=== PATIENT | female | born 1980 | race Two or more races ===

== ENCOUNTER 2024-11-17 10:09 | Outpatient (AMB) | payer MEDICAID, SELFPAY ==
--- OUTSIDE RECORDS SUMMARY | 2024-11-17 10:18 | XMS_ITS | Clinical Summary ---
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 Name Role Phone Unavailable Primary Care Provider Unavailabl e Encounters Date Type Department Care Team Description 11/07/2024 Population Health Risk Score [facility] ([facility]) Department [address] [place] [address] Provider, Population Health Generic from Last 3 Months Social History Tobacco Use Types Packs/Day Years Used Date Smoking Tobacco: Never Assessed Comments Unknown Sex and Gender Information Value Date Recorded Sex Assigned at Not on file Legal Sex Female 9:21 PM EDT Gender Identity Not on file Sexual Orientation Not on file Plan of Treatment Health Maintenance Due Date Last Done Comments CT Colonography 1979 Colonoscopy 1979 Colorectal Cancer Screening 1979 Depression Screening 1979 FIT DNA/Cologuard 1979 FIT 1979 FOBT 1979 HIV Screening 1979 SDOH Screening 1979 Sigmoidoscopy 1979 Disability Screening 1979 Alcohol/Substance Use Screening 1991 Tobacco Screening 1991 Family Planning (PISQ) 1994 HPV Vaccines (1 - 3-dose series) 1994 Hepatitis C Screening 1997 DTaP/Tdap/Td Vaccines (1 - Tdap) 1998 Hepatitis B Vaccines (1 of 3 - 19+ 3-dose series) 1998 Pap Smear 2000 Cervical Cancer Screening 2009 HPV/Cotest 2009 Mammogram 2019 COVID-19 Vaccine ( - 2023-2 5 season) 2023 Influenza Vaccine (#1) 2024 Zoster Vaccines (1 of 2) 2029 RSV Patients and Pa tients Aged 60 years or older (1 - 1-dose 75+ series) 2054 HIB Vaccines Aged Out No longer eligi ble based on patient's age to complete this topic Hepatitis A Vaccines Aged Out No long er eligible based on patient's age to complete this topic IPV Vaccines Aged Out No longer eligi ble based on patient's age to complete this topic Meningococcal B Vaccine Aged Out No l onger eligible based on patient's age to complete this topic Meningococcal Vaccine Aged Out No emiliano miguelina eligible based on patient's age to complete this topic Pneumococcal Vaccine: Pediat rics (0 to 5 Years) and At-Risk Patients (6 to 49) Years Aged Out No longer eligible b ased on patient's age to complete this topic RSV under 20 months Aged Out No longe r eligible based on patient's age to complete this topic Rotavirus Vaccines Aged Out No longer eligible based on patient's age to complete this topic
--- OUTSIDE RECORDS SUMMARY | 2024-11-17 10:18 | XMS_ITS | Clinical Summary ---
Author Organization [facility] it Address [address] [place] [address] Care Team Providers Care Administrative Staff Supervisor Name Role Phone Name, Jerry YANG Primary Care Provider [phone] Surgical History Surgery Date Site/Laterality Comments OTHER SURGICAL HISTORY PROCEDURE: DE ASPIRATION&/INJECTION GANGLION CYST ANY LOCATJ Medical History Medical History Date Comments Depressive disorder, not els ewhere classified 02/09/2007 DX:Depressive disorder, not elsewhere classified Migraine without aura, witho ut mention of intractable migraine without mention of status migrainosus 02/09/2007 DX:Migraine with out aura, without mention of intractable migraine without mention of status migrainosus Backache, unspecified 02/09/2007 DX:Backach e, unspecified Family History Medical History Relation Name Comments Ovarian cancer Mother total hyst, n o chemo Breast cancer Neg Hx Uterine cancer Neg Hx Relation Name Status Comments Brother Alive asthma Father Mother Alive asthma Sister 1 Alive ashtma Sister 2 Alive asthma Son Alive asthma Social History Tobacco Use Types Packs/Day Years Used Date Smoking Tobacco: Former Cigarettes Smokeless Tobacco: Former Alcohol Use Standard Drinks/Week Comments Yes 0 (1 standard drink = 0.6 oz pur e alcohol) Comments Unknown Sex and Gender Information Value Date Recorded Sex Assigned at Not on file Legal Sex Female 11:36 PM EST Gender Identity Not on file Sexual Orientation Not on file Obstetrics History Plan of Treatment Health Maintenance Due Date Last Done Comments Hepatitis B Vaccines (1 of 3 - 19+ 3-dose series) 1998 Cervical Cancer Screening: P ap Smear 2000 DTaP,Tdap,and Td Vaccines (2 - Td or Tdap) 06/14/2017 06/14/2007 Cholesterol Screening (Lipid Panel) 03/22/2022 Colorectal Cancer Screening: Colonoscopy 03/22/2022 HIV Screening 03/22/2022 Hepatitis C Screening 03/22/2022 Social Influencers of Health Screening 03/22/2022 Breast Cancer Screening 02/17/2023 02/17/2021 COVID-19 Vaccine (2023-2 5 season) 2023 Depression Screening 04/19/2024 Influenza Vaccine (#1) 2024 1, 01/10/2009 HIB Vaccines Aged Out No longer eligi ble based on patient's age to complete this topic HPV Vaccines Aged Out No longer eligi ble based on patient's age to complete this topic Hepatitis A Vaccines Aged Out No long er eligible based on patient's age to complete this topic IPV Vaccines Aged Out No longer eligi ble based on patient's age to complete this topic MMR Vaccines Aged Out No longer eligi ble based on patient's age to complete this topic Meningococcal ACWY Vaccine Aged Out N o longer eligible based on patient's age to complete this topic Meningococcal B Vaccine Aged Out No l onger eligible based on patient's age to complete this topic Pneumococcal Vaccine: Pediatrics (0 to 5 Years) and At-Risk Patients (6 to 49 Years) Aged Out No longer eligible b ased on patient's age to complete this topic RSV Immunization Patients Under 20 months Aged Out No longer eligible b ased on patient's age to complete this topic Varicella Vaccines Aged Out No longer eligible based on patient's age to complete this topic Procedures Procedure Name Priority Date/Time Associated Diagnosis Comments [facility] SCREENING DIGITAL Routine 02/17/2021 11:19 AM EDT Encounter for screening mammogram for malignant neoplasm of breast from Last 3 Months or Most Recently Relevant to Health Maintenance Results * [facility] SCREENING DIGITAL (02/17/2021 11:19 AM EDT) Anatomical Region Laterality Modality Mammography 02/17/2021 9:02 AM EDT Narrative 02/17/2021 11:19 AM EDT [facility] Diagnostic Imaging Department [address] [place] [id number] Patient: ANGEL PANG /Age/Sex: 1980 - 40 - F Unit#: [id number] Location/Status: SPDIMAM/REG CLI Mnemonic/Ordering Site: [facility] Ordering Physician: SYLVIA RIVAS LITERACY SPECIALIST [facility] Screening Digital - 02/17/21925 EXAM: [facility] Screening Digital EXAM DATE AND TIME: 02/17/2021 9:27 AM HISTORY: Screening. Baseline exam. COMPARISON: No comparison studies. TECHNIQUE: CC and MLO views of both breasts were obtained using full field digital mammography. Bilateral digital breast tomosynthesis was performed in the MLO projection. Computer aided detection with the Clowdy 7.2-H was employed. TISSUE DENSITY: b. There are scattered areas of fibroglandular density. FINDINGS: No suspicious masses, grouped microcalcifications, or areas of architectural distortion are seen. The skin and vascularity are unremarkable. IMPRESSION: No mammographic evidence of malignancy is seen. A negative mammogram in the presence of a clinically suspicious palpable abnormality does not preclude the possibility of malignancy or alter the indications for biopsy. BI-RADS: Category 1: Negative RECOMMENDATION(S): 1: Routine screening mammogram BILATERAL in 1 year. [id number], 54099 3341F, 7025F Dictating Physician: TEODORA RICHARDS MD Electronically Signed by: TEODORA RICHARDS MD Dic Date/Time: 02/17/21 1118 Sign date/Time: 02/17/21 1119 Procedure Note Teodora Richards MD - 04/08/2022 [facility] Diagnostic Imaging Department [address] [place], [place] [id number] Patient: ANGEL PANG /Age/Sex: 1980 - 40 - F Unit#: [id number] Location/Status: SPDIMAM/REG CLI Mnemonic/Ordering Site: [facility] Ordering Physician: SYLVIA RIVAS LITERACY SPECIALIST [facility] Screening Digital - 02/17/21925 EXAM: [facility] Screening Digital EXAM DATE AND TIME: 02/17/2021 9:27 AM HISTORY: Screening. Baseline exam. COMPARISON: No comparison studies. TECHNIQUE: CC and MLO views of both breasts were obtained using fullfield digital mammography. Bilateral digital breast tomosynthesis was performedin the MLO projection. Computer aided detection with the Clowdy 7.2-Nodeableas employed. TISSUE DENSITY: b. There are scattered areas of fibroglandular density. FINDINGS: No suspicious masses, grouped microcalcifications, or areas ofarchitectural distortion are seen. The skin and vascularity are unremarkable. IMPRESSION: No mammographic evidence of malignancy is seen. A negative mammogram in the presence of a clinically suspicious palpable abnormality does not preclude the possibility of malignancy or alter the indications for biopsy. BI-RADS: Category 1: Negative RECOMMENDATION(S): 1: Routine screening mammogram BILATERAL in 1 year. 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
--- OUTSIDE RECORDS SUMMARY | 2024-11-17 10:18 | XMS_ITS | Clinical Summary ---
Author Organization [facility] Address [address] [place] [address] Care Team Providers Care Head Cd Reactor Operator Name Role Phone Vladislav Cao OUTBOUND SALES AGENT-C Primary Care Provider [phone] Source Comments PLEASE NOTE, if this patient is a minor, it may be UNLAWFUL to discuss sensitive information that is contained in these records (such as FAMILY PLANNING, MENTAL HEALTH or SUBSTANCE ABUSE) with the minor patient's parent or other person without the patient's specific authorization.[facility] Allergies Active Allergy Reactions Criticality Noted Date Comments Amoxicillin Rash 11/24/2016 Morphine 10/08/2023 Medications ferrous sulfate 325 mg (65 mg iron) tabletIndications :Iron deficiency anemia secondary to inadequate dietary iron intake Take 1 Tablet by mouth once daily with breakfast 90 Tablet 1 05/19/19 23 Active sennosides-docusa te sodium (PERICOLACE) 8.6-50 mg per tabletIndications :Slow transit constipation Take 2 Tablets by mouth nightly at bedtime 60 Tablet 5 05/19/19 23 Active ibuprofen 600 mg tabletIndications :Migraine with aura and without status migrainosus, not intractable,Prima ry osteoarthritis of both hands Take 1 Tablet by mouth 3 (three) times daily as needed for pain 60 Tablet 05/19/19 23 Active diclofenac sodium (VOLTAREN) [address] tabletIndications :Compression fracture of lumbar vertebra, sequela Take 1 Tablet by mouth 2 (two) times daily 90 Tablet 12/16/19 23 Active ondansetron ODT (ZOFRAN-ODT) 4 mg disintegrating tabletIndications :Nausea Take 1 Tablet by mouth every 8 (eight) hours as needed for nausea 60 Tablet 2 02/06/20 23 Active naloxone (NARCAN) 4 mg/actuation nasal spray Place 4 mg into the nostril(s) as needed for opioid reversal 01/14/20 23 Active docusate sodium (COLACE) 100 mg capsule TAKE 1 CAPSULE BY MOUTH TWICE A DAY NEEDED CONSTIPATION 02/02/20 23 Active loperamide (IMODIUM) 2 mg capsule Take 1 Capsule by mouth 4 (four) times daily as needed for diarrhea 30 Capsule 04/29/19 24 Active MISCELLANEOUS MEDICAL SUPPLY MISCIndications: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 Please dispense 1 incentive spirometer. Need: lifetime. 1 Each 06/11/19 24 Active hydrOXYzine HCL (ATARAX) 50 mg tabletIndications :Anxiety and depression,Panic attacks TAKE 1 TABLET BY MOUTH THREE TIMES A DAY NEEDED FOR ANXIETY 90 Tablet 2 08/19/19 24 Active magnesium oxide (MAG-OX) 400 mg (241.3 mg magnesium) tablet TK 1 T PO QD WITH MEAL 90 Tablet 1 09/21/19 24 Active escitalopram oxalate (LEXAPRO) 5 mg tabletIndications :Anxiety and depression,Panic attacks TAKE 1 TABLET BY MOUTH EVERY DAY 30 Tablet 2 12/07/19 24 Active benzonatate (TESSALON) 200 mg capsuleIndication s:Upper respiratory tract infection, unspecified type Take 1 Capsule by mouth 3 (three) times daily as needed for cough 30 Capsule 07/28/19 25 Active oxymetazoline (AFRIN SINUS, OXYMETAZOLINE,) 0.05 % nasal sprayIndications: Upper respiratory tract infection, unspecified type Place 2 Sprays into the nostril(s) 2 (two) times daily 15 mL 07/28/19 25 Active meclizine 25 mg chewable tabletIndications :Upper respiratory tract infection, unspecified type Place 1 Tablet into mouth, chew and swallow 3 (three) times daily as needed for nausea 90 Tablet 07/28/19 25 Active gabapentin (NEURONTIN) 800 mg tabletIndications :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 90 Tablet 2 09/13/19 25 Active rizatriptan (MAXALT) 10 mg tabletIndications :Migraine with aura and without status migrainosus, not intractable Take 1 Tablet by mouth 1 (one) time as needed for migraine for up to 1 dose if symptoms persist or return, may repeat dose after 2 hours. Max dose: 30 mg/24 hours. 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 30 Tablet 09/13/19 25 025 Discontin ued(Reord er (E-Cancel Not Sent)) Active Problems Problem Noted Date Diagnosed Date History of lobectomy of thyroid 12/10/2023 Spinal stenosis of lumbar region 12/10/2023 Solitary plasmacytoma not milan ving achieved remission ([facility]) 02/09/2023 Acute deep vein thrombosis o f right popliteal vein ([facility]) 02/09/2023 Pathological fracture of lum bar vertebra with routine healing 02/09/[address] 05/19/2022 Slow transit constipation 06/13/2019 Morbid obesity due to excess calories ([facility]) 11/24/2016 PCOS (polycystic ovarian syndrome) 04/21/2011 Iron deficiency anemia maximilian vasquez to inadequate dietary iron intake Migraine with aura and witho ut status migrainosus, not intractable Seizure disorder ([facility]) Overview (06/13/2019): Last seizure at age 13 Seasonal allergies Resolved Problems Problem Noted Date Diagnosed Date Resolved Date Breast cancer screening 06/13/201904/21 Acute upper respiratory infection 12/07/2018 06/13/2019 Hx of colonoscopy 11/24/2016 05/19/2022 Overview (11/24/2016): 2016 due to abd pain- normal Menstrual periods irregular 06/14/2007 05/19/2022 Overview (06/13/2019): Overview: Prescribed metformin by ginecologist History of seizures 05/19/19 23 Overview (11/24/2016): last one was 23 years ago Depression 05/19/2022 GERD (gastroesophageal reflux disease) 05/19/2022 Overview (11/24/2016): US abd 01/2016- unremarkable Colonoscopy 2016 and EGD unremarkable Encounters Date Type Department Care Team Description 11/10/2024 2:00 PM EDT Office Visit [address] [phone] Vladislav Cao FNP-C 11/08/2024 Interim Notes [address] [phone] Gill Noguera 10/24/2024 Interim Notes [address] [phone] Vladislav Cao FNP-C 09/01/2024 5:20 PM EDT Telemedicine Visit [address] [phone] Vladislav Cao FNP-C 08/29/2024 Interim Notes [address] [phone] Marina Demarco RN 08/29/2024 Interim Notes [address] [address] Madison Rock, Community Health Worker 08/29/2024 Interim Notes [address] [phone] Gill Noguera from Last 3 Months Immunizations Immunization Administration Dates Next Due Flu, Preservative Free 02/03/2021,02/10/2019,12/2017 HPV, QUADRIVALENT 06/29/2022 Hep B,adult,adjuvanted (HEPLISAV) 05/19/2022 INFLUENZA, SEASONAL, INJECTABLE 03/01/20 18,06/21/2012,02/05/2011,2008 INFLUENZA, SEASONAL, INJECTA BLE, PRESERVATIVE FREE 02/20/2016,02/19/2015 PPD 06/13/2019 TDAP 10/18/2017,10/07/2012,06/14/2007 Family History Medical History Relation Name Comments Asthma Brother Seizures Father Asthma Mother Cancer Mother ovarian CA Mental illness Mother Asthma Sister Relation Name Status Comments Brother Alive Father motorcycle acci dent Mother Alive ovarian cancer Sister Alive Social History Tobacco Use Types Packs/Day Years Used Date Smoking Tobacco: Former Cigarettes Smokeless Tobacco: Never Tobacco Cessation:Counseling Given: Not Answered Comments:quit in 2016 Alcohol Use Standard Drinks/Week Comments Not Currently 0 (1 standard drink = 0.6 oz pur e alcohol) Social Connections Answer Date Recorded Connectedness 0 02/02/2023 Financial Resource Strain Answer Date R ecorded Financial Resource Strain 99 2023 Stress Answer Date Recorded Stress 0 02/02/2023 Physical Activity Answer Date Recorded Physical Activity 0 12/07/2018 Food Insecurity Answer Date Recorded Food 0 02/02/2023 Transportation Needs Answer Date Record ed Transportation 0 02/02/2023 Housing Stability Answer Date Recorded Think about the place you li ve. Do you have problems with any of the following? (Check all that apply) 1 10/27/2023 Safety and Environment Answer Date Earle rded How often does anyone, inclu ding family and friends, physically hurt you? 1 09/01/2024 Utilities Answer Date Recorded Utilities 0 02/02/2023 Employment Answer Date Recorded Stress 0 07/07/2021 Comments No Sex and Gender Information Value Date Recorded Sex Assigned at Female 04/27/2017 1:33 PM PST Legal Sex Female 7:36 AM PST Gender Identity Female 04/27/2017 1:33 PM PST Sexual Orientation Straight 04/27/2017 1: 33 PM PST Occupation Industry Job Start Date Job End Date Unemployed Not on file Not on file Not on file Last Filed Vital Signs Vital Sign Reading Time Taken Comments Blood Pressure 108/66 11/10/2024 2:06 PM EDT Pulse 104 11/10/2024 2:06 PM EDT Temperature 36.6 C (97.9 F) 11/10/2024 2:06 PM EDT Respiratory Rate 19 11/10/2024 2:06 PM EDT Oxygen Saturation 96% 08/09/2024 10:45 AM EDT Inhaled Oxygen Concentration - - Weight 121.1 kg (267 lb) 11/10/2024 2:06 PM EDT Height 157.5 cm (5' 2 ) 11/10/2024 2:06 PM EDT Body Mass Index 48.83 11/10/2024 2:06 PM EDT Plan of Treatment Upcoming Encounters Date Type Department Care Team (Late st Contact Info) Description 12/15/2024 5:20 PM EDT Telemedicine Visit [facility] [address] [place] [phone] Vladislav Cao FNP-[place] [address] [place] [address] Health Maintenance Due Date Last Done Comments HPV Screening 1979 Pap + HPV 1979 Urine Drug Screen 1979 Cervical Cancer Screening 01/17/2018 Pap Smear 01/17/2018 01/17/2015 Breast Cancer Screening (Mammogram) 2019 Imm-Hepatitis B (2 of 2 - Cp G 2-dose series) 06/16/2022 05/19/2022 Annual Wellness (Adult): Indicated (All Coverage) 05/19/2023 05/19/2022, 06/13/2019, 10/18/2017 Diabetes Screening 05/19/2023 05/19/2022, 0 05/19/2022, 06/14/2019, Additional history exists [id number] ( season) 2023 CT Colonography 2024 Colonoscopy 2024 Colorectal Cancer Screening 2024 FIT/gFOBT 2024 Fecal DNA 2024 Flexible Sigmoidoscopy 2024 Imm-Influenza (#1) 2024 01/27/2024, 1 , 02/10/2019, Additional history exists Depression Monitoring 02/10/2025 11/10/2024 , 09/01/2024, 10/08/2023, Additional history exists Lipid Screening 05/19/2025 05/19/2022, 05/21, 04/28/2017 Relationship Safety Screening/Counseling 09/01/2025 09/01/2024, 02/02/2023, 05/19/2022, Additional history exists Anxiety Screening 11/10/2025 11/10/2024 Hypertension Screening (#1) 11/10/2025 Tobacco Screening 11/10/2025 11/10/2024, , 06/10/2023 Imm-DTaP/Tdap/Td (4 - Td or Tdap) 10/19/2027 10/18/2017, 10/07/2012, 06/14/2007 HIV Screening Completed 06/14/2019, 10/18/2017 Hepatitis C Screening Completed 05/19/2022 Alcohol and Drug Screen Completed 11/11/19, 09/01/2024, 04/29/2023, Additional history exists Cervical Ablation/Cold-Knife Conization Discontinued Cervical Cryotherapy Discontinued Colposcopy Discontinued Endometrial Biopsy Discontinued Excision/Leep Discontinued HPV Genotyping Discontinued Vaginal Pap Discontinued Vulvoscopy Discontinued Procedures Procedure Name Priority Date/Time Associated Diagnosis Comments OTHER ORDERS SCANNED DOCUMENT 10/31/2024 3:00 AM EDT OTHER ORDERS SCANNED DOCUMENT 10/27/2024 3:00 AM EDT REFERRAL SCANNED DOCUMENT 09/20/2024 3:00 AM EDT HEPATITIS C AB W/RFLX HCV RNA, QT, RT PCR Routine 05/19/2022 1:51 PM EST Health maintenance examination COMPREHENSIVE METABOLIC PANEL Routine 05/19/2022 1:51 PM EST Health maintenance examination LIPIDS W RFLX TO DIRECT LDL Routine 05/19/2022 1:51 PM EST Health maintenance examination Morbid obesity due to excess calories (HCC-CMS) ANTIBODY HIV-1&HIV-2 SINGLE RESULT Routine 06/14/2019 8:55 AM EST Encounter for general adult medical examination w/o abnormal findings from Last 3 Months or Most Recently Relevant to Health Maintenance Results * OTHER ORDERS SCANNED DOCUMENT (10/31/2024 3:00 AM EDT) Only the most recent of2 resultswithin the time period is included. 10/31/2024 3:00 AM EDT [facility] OUTBOUND SALES AGENT-C SCAN OTHER ORDERS Final R esult * REFERRAL SCANNED DOCUMENT (09/20/2024 3:00 AM EDT) 09/20/2024 3:00 AM EDT [facility] OUTBOUND SALES AGENT-C SCAN REFERRAL Final Res ult * HEPATITIS C AB W/RFLX HCV RNA, QT, RT PCR (05/19/2022 1:51 PM EST) HEPATITIS C ANTIBODY NON-REACT ULI NON-REACT ULI [employer] SIGNAL TO CUT-OFF <0.02 <1.[address] [employer] [facility] Comment: HCV antibody was non-reactive. There is no laboratory evidence of HCV infection. In most cases, no further action is required. However, if recent HCV exposure is suspected, a test for HCV RNA (test code 85533) is suggested. For additional information please refer to http://education.[employer]/faq/JMI52k3 (This link is being provided for informational/ educational purposes only.) Blood Blood / Unknown 05/19/2022 1 :51 PM EST 05/19/2022 1:52 PM EST Narrative [facility] - 05/24/2022 7:59 PM EST FASTING:YES Roma Loera NP LAB - BLOOD DRAW Edited Result - Final Performing Organization Address [facility]/ZIP Co de Phone Number [facility] [address] [address], [facility] [address] ([address]) [place] [address] * (ABNORMAL) Lipid Panel (with Reflex Direct LDL) (05/19/2022 1:51 PM EST) [facility] Signature CHOLESTEROL, TOTAL 192 <200 mg/dL [facility] HDL CHOLESTEROL 50 > OR = 50 mg/dL [facility] TRIGLYCERIDES 75 <150 mg/dL [facility] LDL-CHOLESTEROL 125(H) 99 mg/dL (calc) [facility] Comment: Reference range: <100 Desirable range <100 mg/dL for primary prevention; <70 mg/dL for patients with CHD or diabetic patients with > or = 2 CHD risk factors. LDL-C is now calculated using the Chris-Lisa calculation, which is a validated novel method providing better accuracy than the Friedewald equation in the estimation of LDL-C. Chris SS et al. ABHIJEET. 2013;310(19): 4962-5399 (http://education.Variab.ly/faq/YGV267) CHOL/HDLC RATIO 3.8 <5.0 (calc) [facility] NON-HDL CHOLESTEROL 142(H) <130 mg/dL (calc) [facility] Comment: For patients with diabetes plus 1 major ASCVD risk factor, treating to a non-HDL-C goal of <100 mg/dL (LDL-C of <70 mg/dL) is considered a therapeutic option. Blood Blood / Unknown 05/19/2022 1 :51 PM EST 05/19/2022 1:52 PM EST Narrative [facility] - 05/24/2022 7:59 PM EST FASTING:YES us Roma Loera NP LAB - BLOOD DRAW Final Result Performing Organization Address [facility]/ZIP Co de Phone Number [facility] [address] [place] [address], [facility] [address] [facility] [address]) [place] [address] * CMP (05/19/2022 1:51 PM EST) GLUCOSE 81 65 - 99 mg/dL [facility] Comment: Fasting reference interval UREA NITROGEN (BUN) 11 7 - 25 mg/dL [facility] CREATININE (blood) 0.63 0.50 - 0.99 mg/dL [facility] EGFR 113 > OR = 60 mL/min/1 .73m2 [facility] Comment: The eGFR is based on the CKD-EPI 2020 equation. To calculate the new eGFR from a previous Creatinine or Cystatin C result, go to https://www.kidney.org/professionals/ kdoqi/gfr%5Fcalculator BUN/CREATININE RATIO NOT APPLICABLE 6 - [facility] SODIUM 141 135 - 146 mmol/L [facility] POTASSIUM 4.0 3.5 - 5.3 mmol/L [facility] CHLORIDE 107 98 - 110 mmol/L [facility] CARBON DIOXIDE 29 20 - 32 mmol/L [facility] CALCIUM 9.1 8.6 - 10.2 mg/dL [facility] PROTEIN, TOTAL 6.9 6.1 - 8.1 g/dL [facility] ALBUMIN 4.3 3.6 - 5.1 g/dL [facility] GLOBULIN 2.6 1.9 - 3.7 g/dL (calc) [facility] ALBUMIN/GLOBUL IN RATIO 1.7 1.0 - 2.5 (calc) [facility] BILIRUBIN, TOTAL 0.5 0.2 - 1.2 mg/dL [facility] ALKALINE PHOSPHATASE 58 31 - 125 U/L [facility] AST 13 10 - 30 U/L [facility] ALT 14 6 - 29 U/L [facility] Blood Blood / Unknown 05/19/2022 1 :51 PM EST 05/19/2022 1:52 PM EST Narrative [facility] - 05/24/2022 7:59 PM EST FASTING:YES Roma Loera NP LAB - BLOOD DRAW Edited Result - Final [facility] [address] [facility] [address] [place] [address], [facility] [address] [facility] ([address]) [place] [address] * HIV-1 & HIV-2 ANTIBODIES (06/14/2019 8:55 AM EST) [facility] HIV 1 AND 2 ANTIBODY SCREEN NEGATIVE NEGATIVE [facility] Comment: This assay is a 4th generation assay allowing for earlier detection of HIV infection by detecting the presence of the HIV-1 p24 antigen as well as the traditional antibodies to HIV type 1 (including group O) and type 2. Use of a 4th generation assay is the current CDC recommendation for HIV screening. Blood specimen (specimen) Blood / Unknown 06/14/2019 8:55 AM EST 06/14/2019 9:18 AM EST Narrative [facility] - 06/14/2019 12:53 PM EST [employer], [place] [address] Milk Handler - Rosa Maria Carlos MD PT ID [id number] ORD# [id number] Kayla LICONA LAB - BLOOD DRAW Final Resu lt [facility] [place] [address], from Last 3 Months or Most Recently Relevant to Health Maintenance Insurance [employer] [address] [employer] Care Teams Head Cd Reactor Operator Relationship Specialty Start Date End Date Vladislav Cao FNP-C [address] [place] [address] PCP - General Internal Medicine 02/16/23
--- NOTE | 2024-11-17 10:34 | A.OFFVIS_ITS ---
Vital Signs 11/17/24 10:38 Height 5 ft 2 in Intake Visit Reasons: migraine Allergies amoxicillin Allergy (Unknown, Verified 11/17/24 10:39) Unknown morphine Allergy (Unknown, Verified 11/17/24 10:39) Unknown Medication List - Last Reconciled 11/17/24 by Verenice Castañeda CNP gabapentin 800 mg PO TID levothyroxine 25 mcg PO DAILY oxycodone 5 mg PO TID PRN propranolol mg PO BID rizatriptan mg PO HPI Comments Details: 44-year-old woman with back pain on chronic narcotic therapy (fall resulting in L3 vertebra fx and 97% compression, plasmacytoma of L3 vertebra s/p RT), FRANKLIN on CPAP, and migraines since age 12. Headaches are throbbing with photophobia, sonophobia, nausea, and sometimes vomiting and visual distortion. Triggers include certain foods, such as aged cheeses and processed foods. No hormonal triggers. She went to [facility] twice last week for migraine, first on 11/07/2024 and then again on 11/09/2024. On average, migraines have been happening about 2-3x/month with photophobia, sonophobia, nausea, vomiting, dizziness, and spots in vision. Rizatriptan usually helps, but did not help this past week. She also tried Excedrin which did not help. She stopped topiramate a few months ago due to side effect of drowsiness, no change in headaches after stopping medication. Sleep was not so good. She used sumatriptan injections in the past which worked well. Review of Systems Const Denies chills, Denies daytime sleepiness, Reports difficulty sleeping, Denies fatigue, Denies fever(s), Denies frequent falls, Reports headache(s), Denies increased appetite, Denies poor appetite, Denies snoring, Denies weakness, Denies weight gain and Denies weight loss Eyes Denies loss of vision ENT Denies vertigo, Reports dizziness, Reports headache(s) and Denies neck pain Card Denies chest pain at rest, Denies chest pain with activity, Denies syncope, Denies leg edema, Denies palpitations, Denies dyspnea and Denies dyspnea on exertion Resp Denies cough, Denies dyspnea, Denies dyspnea on exertion and Denies snoring GI Denies abdominal pain, Denies constipation, Denies heartburn, Denies diarrhea and Denies nausea Denies urinary frequency, Denies urinary incontinence and Denies urinary urgency Musc Denies abnormal gait, Denies back pain, Denies myalgias, Denies arthralgias, Denies neck pain, Denies numbness and Denies tingling Neuro Denies abnormal gait, Denies vertigo, Reports dizziness, Denies syncope, Denies frequent falls, Reports headache(s), Denies lack of coordination, Denies loss of vision, Denies memory loss, Denies numbness, Denies Other visual disturbances, Denies restless legs, Denies seizure-like activity, Denies tingling, Denies paresthesias, Denies tremor(s) and Denies weakness Psych Denies anxiety, Denies depression, Denies auditory hallucinations, Denies memory loss and Denies visual hallucinations Endo Denies fatigue and Denies palpitations Physical Exam Const Other: General Appearance:? normal, in no acute distress. Heart:? S1, S2 normal, no murmurs. Lungs:? clear anteriorly and posteriorly. Musculoskeletal:? normal. Extremities:? no edema. Psych:? alert, oriented, cognitive function intact, cooperative with exam. Neuro Other: Abnormal Neurological Findings:?none.? Mental Status: alert and oriented X 3. Normal attention, orientation, memory, and affect. Cranial Nerves: Pupils are equal, round, and reactive to light. External ocular muscles are intact. Visual salvador are full, no ptosis. Face is symmetrical, no facial weakness or droop. Facial sensations are normal. Tongue protrudes in midline. Palate elevates symmetrically. Shoulder shrugging is normal Motor Examination: Normal muscle tone, bulk and strength. No atrophy or fascicul ations. No drift of the extended upper extremities. DTR 2+. Plantars are flexor. Straight Leg Raisin degrees. Sensory Exam: Normal light touch, temperature, pinprick, vibration, and joint- position sensations. Rhomberg sign is absent. Coordination: No ataxia. No titubation. [id number], [id number] test, and rapid alternating movements were normal. Gait Exam: Within normal limits. Cerebellar Signs: [id number] and [id number] is normal. No dysdiadochokin esia. Extrapyramidal System: No tremor, rigidity with normal facial expressions. No bradykinesia. No bradyphrenia. Normal arm swing and posture. No propulsion or retropulsion. Speech: Normal. No dysphasia or dysarthria. Assessment & Plan Assessment & Plan (1) Migraine: Code(s): G43.909 - Migraine, unspecified, not intractable, without status migrainosus Category: Medical Qualifiers: Migraine type: unspecified Status migrainosus presence: without status migrainosus Intractability: not intractable Qualified Code(s): G43.909 - Migraine, unspecified, not intractable, without status migrainosus Plan: Continue propranolol 40mg 1 tablet twice a day. Will change rizatriptan to disintegrating tablet 10mg 1 tablet as needed for migraine due to nausea and vomiting Start ondansetron 4mg 1 tablet as needed for nausea and vomiting, use/side effects reviewed Start sumatriptan injection as needed for migraine, use/side effects reviewed. She previously used this medication as needed with good relief. She would benefit from injectable therapy due to nausea and vomiting. Plan Meds tried: topiramate, propranolol, sumatriptan Medications: New propranolol 40 mg PO BID 180 tabs 1RF 90 days ondansetron 4 mg PO DAILY PRN 10 tabs 5RF nausea and vomiting 30 days sumatriptan succinate 6 mg (0.5 mL) subcut DAILY PRN 3 ea 5RF migraine headache rizatriptan take 1 tab at onset of headache; if no relief may repeat 1 tab after at least 4 hrs; max = 2 tabs/24 hr PO 10 tabs 5RF 30 days Discontinued propranolol Discontinued Reason: Order PO BID rizatriptan Discontinued Reason: Order PO Coding Level of Care Code Est Pt Level 4 (29610) Diagnoses Migraine without status migrainosus, not intractable, unspecified migraine type G43.909 Migraine type: unspecified Status migrainosus presence: without status migrainosus Intractability: not intractable
== END 2024-11-17 11:17 | disposition home or self-care (01) ==
LOC: HO.HSM 10:09
PROVIDERS: PCP Registered Nurse; Visit Provider Registered Nurse
DX: G43.909 Migraine, unspecified, not intractable, without status migrainosus (principal)
CPT/HCPCS: 99214

== ENCOUNTER → 2024-11-17 10:09 | Outpatient (BNVA) | payer MEDICAID, SELFPAY | PROVIDERS: PCP Registered Nurse; Visit Provider Registered Nurse | DX: G47.33 Obstructive sleep apnea (adult) (pediatric) (principal); G43.909 Migraine, unspecified, not intractable, without status migrainosus; Z99.89 Dependence on other enabling machines and devices | CPT/HCPCS: 99212 ==